=== PATIENT | female | born 1960 | race American Indian/Alaskan Native ===

== ENCOUNTER → 2017-10-23 | Outpatient (CLI) | payer BC ==
--- NOTE | 2017-10-23 12:13 | P.STRESS ---
- Stress Test Note Stress Test Results/Findings: Exam Performed: stress test Exam Date: 10/23/17 Reason for Exam: Chest Pain Height: 5 ft 5 in Weight: 62.596 kg Protocol: [facility] Stage: 1 Duration of Exercise: 5:00 Resting Heart Rate: 83 Resting Blood Pressure: 152/96 Maximum Achieved Heart Rate: 140 Maximum Achieved Blood Pressure: 195/87 85% PMHR: 139 100% PMHR: 164 METS: 6.9 Technologist Comment: Stress Test Results/Findings: Baseline heart rate 83 beats a minute, Baseline blood pressure 152/96. His mercury The second ECG shows 0.[address] depression inferolaterally next Patient excised in a [facility] protocol for only 5 minutes. Her legs became tired. She had chest pressure occasional PVCs were noted There was no definite ECG ohms for ischemia this low workload level Impression Low workload level achieved, occasional PVCs Baseline ECG abnormalities, no definite ECG evidence for ischemia
== END | disposition home or self-care (01) ==
LOC: RADNMMAIN 10:37
PROVIDERS: ATTEND Family Medicine
DX: I49.3 Ventricular premature depolarization (principal); R94.31 Abnormal electrocardiogram [ECG] [EKG]
CPT/HCPCS: 93017

== ENCOUNTER → 2018-06-01 | Outpatient (CLI) | payer OTHER | END | disposition home or self-care (01) | LOC: LABWHC1 10:36 | PROVIDERS: ATTEND Internal Medicine Rheumatology | DX: M00.862 Arthritis due to other bacteria, left knee (principal) | CPT/HCPCS: 36415; 87040 ==